=== PATIENT | male | born 1970 | race Hispanic/Latino ===

== ENCOUNTER 2017-11-01 23:41 | Emergency (ER) | payer BC, MEDICARE, OTHER ==
[2017-11-01 23:45] VITALS: BMI 21.7
[2017-11-01 23:47] VITALS: BP 151/83; RESP 18; TEMP 99.5; O2SAT 96
[2017-11-02] MEDS ORDERED: Sodium Chloride 0.9% 1,000 ML IV STA (00:25)
[2017-11-02 00:55] LABS: BASO % 0.7 % (0.0-2.0); EOS # 0.1 K/uL (0.0-0.7); EOS % 1.5 % (0.0-4.0); LYMPH # 0.7 K/uL (1.0-4.3); MEAN CELL VOLUME 89.2 fl (80.0-94.0); MEAN CORPUSCULAR HEMOGLOBIN 29.6 pg (27.0-31.0); MEAN CORPUSCULAR HGB CONC 33.2 g/dL (33.0-37.0); MEAN PLATELET VOLUME 8.2 fl (7.2-11.7); MONO # 0.1 K/uL (0.0-0.8); NEUT # 4.9 K/uL (1.8-7.0); NEUT % 83.8 % (50.0-75.0); NRBC % 0.1 % (0.0-0.0); RBC 4.37 Mil/uL (4.40-5.90); RED CELL DISTRIBUTION WIDTH 13.5 % (11.5-14.5); WHITE BLOOD COUNT 5.9 K/uL (4.8-10.8)
[2017-11-02 01:05] LABS: BLOOD UREA NITROGEN 12 mg/dl (9-20); GFR AFRICAN-AMERICAN > 60; GFR NON-AFRICAN AMERICAN > 60
[2017-11-02] MEDS ORDERED: Iohexol 300 100 ML IJ ONE (01:22)
[2017-11-02] MEDS ORDERED: Sodium Chloride 0.9% 50 ML IV ONE (01:22)
--- NOTE | 2017-11-02 01:35 | ED PDOC ---
HPI: Abdomen Time Seen by Provider: 11/02/17 00:08 Chief Complaint (Nursing): Abdominal Pain Chief Complaint (Provider): Abdominal Pain History Per: Patient History/Exam Limitations: no limitations Onset/Duration Of Symptoms: Intermittent Episodes Current Symptoms Are (Timing): Still Present Additional Complaint(s): 47 year old male presents to the emergency department complaining of left flank pain radiating to the lower abdomen, occurring intermittently since this afternoon. Associated with difficulty urinating and cloudy urine. He denies any fevers, vomiting, diarrhea, chest pain, or shortness of breath. Patient is HIV positive and has a low CD4 count, for which he is on treatment. PMD: Provider TBMayra Past Medical History Reviewed: Historical Data, Nursing Documentation, Vital Signs Vital Signs: Last Vital Signs Temp 99.5 F 11/01/17 23:45 Pulse 80 11/02/17 04:13 Resp 18 11/01/17 23:45 BP 151/83 H 11/01/17 23:45 Pulse Ox 96 11/02/17 04:13 - Medical History PMH: HIV, Migraine Denies: Diabetes, Hepatitis, HTN, Chronic Kidney Disease, Seizures, Sexually Transmitted Disease - Surgical History Surgical History: Appendectomy - Family History Family History: States: Unknown Family Hx - Social History Current smoker - smoking cessation education provided: Yes Alcohol: Social Drugs: Opiates (Heroin) - Immunization History Hx Tetanus Toxoid Vaccination: No Hx Influenza Vaccination: No Hx Pneumococcal Vaccination: Yes - Home Medications Home Medications: Ambulatory Orders Medication Instructions Recorded Levofloxacin [Levaquin] 500 mg PO DAILY #7 tablet 11/02/17 - Allergies Allergies/Adverse Reactions: Allergies Allergy/AdvReac Type Severity Reaction Status Date / Time No Known Allergies Allergy Verified 11/01/17 23:44 Review of Systems ROS Statement: Except As Marked, All Systems Reviewed And Found Negative Constitutional: Negative for: Fever Cardiovascular: Negative for: Chest Pain Respiratory: Negative for: Shortness of Breath Gastrointestinal: Positive for: Abdominal Pain (and left flank pain). Negative for: Vomiting, Diarrhea Physical Exam - Reviewed Nursing Documentation Reviewed: Yes Vital Signs Reviewed: Yes - Physical Exam Appears: Positive for: Non-toxic, No Acute Distress Head Exam: Positive for: ATRAUMATIC, NORMAL INSPECTION, NORMOCEPHALIC Skin: Positive for: Normal Color, Warm, Dry Eye Exam: Positive for: EOMI, Normal appearance, PERRL Neck: Positive for: Normal, Supple Cardiovascular/Chest: Positive for: Regular Rate, Rhythm. Negative for: Murmur Respiratory: Positive for: Normal Breath Sounds. Negative for: Accessory Muscle Use, Respiratory Distress Gastrointestinal/Abdominal: Positive for: Soft, Tenderness (to lower abdomen throughout) Back: Positive for: Normal Inspection. Negative for: L CVA Tenderness, R CVA Tenderness Extremity: Positive for: Normal ROM. Negative for: Deformity Neurologic/Psych: Positive for: Alert, Oriented - Laboratory Results Result Diagrams: 11/02/17 00:45 11/02/17 00:45 - ECG ECG: Positive for: Interpreted By Me, Viewed By Me ECG Rhythm: Positive for: Normal QRS, Normal ST Segment, Sinus Rhythm. Negative for: ST/T Changes Rate: 80 O2 Sat by Pulse Oximetry: 96 (RA) Pulse Ox Interpretation: Normal - Radiology X-Ray: Interpreted by Me, Viewed By Me X-Ray Interpretation: No Acute Disease Medical Decision Making Medical Decision Making: Initial Impression: Flank pain, Abdominal pain, with dysuria Differential includes but is not limited to: kidney stones, UTI Time: 00:24 Initial Plan: --Urine dipstick --BMP --CBC w/ differential --NS IV 1000 ml at 1000 mls/hr --Toradol 30 mg IVP --Zofran 4 mg IV --Blood culture --Urine culture --CT Abdomen/Pelvis IV contrast only --Reevaluation CT Abdomen & Pelvis: FINDINGS: Lower thorax: Mild patchy nodular airspace disease right lower lobe. Minimal patchy nodular airspace disease right middle lobe. ABDOMEN: Liver: Mild periportal edema. Gallbladder and bile ducts: No calcified gallstones. Mild dilatation of common bile duct, to 1.0 cm. Pancreas: No ductal dilation. No mass. Spleen: No splenomegaly. Adrenals: No mass. Kidneys and ureters: No mass. No hydronephrosis. Stomach and bowel: No definite mural thickening. Few mildly distended loops of small bowel, likely ileus. Appendix: Appendectomy. PELVIS: Bladder: Unremarkable. Reproductive: Unremarkable as visualized. ABDOMEN and PELVIS: Intraperitoneal space: No significant fluid collection. No free air. Bones/joints: No acute fracture. Soft tissues: Unremarkable. Vasculature: Mild atherosclerotic disease. No aneurysm. Lymph nodes: No pathologically enlarged lymph nodes. IMPRESSION: 1. Probable right basilar pneumonia. Followup to resolution to exclude underlying pathology. 2. Mild periportal edema, nonspecific. 3. Mild biliary ductal dilatation. Suggest ultrasound. 4. Incidental/non-acute findings are described above. Thank you for allowing us to participate in the care of your patient. Dictated and Authenticated by: Pablo Pool MD 11/02/2017 2:43 AM Eastern Time ([place] & T[place]) Time: 3:12 --Chest X-ray --LFTs Scribe Attestation: Documented by Sweta Duarte, acting as a scribe for Sung Tanner MD Provider Scribe Attestation: All medical record entries made by the Scribe were at my direction and personally dictated by me. I have reviewed the chart and agree that the record accurately reflects my personal performance of the history, physical exam, medical decision making, and the department course for this patient. I have also personally directed, reviewed, and agree with the discharge instructions and disposition. Disposition - Clinical Impression Clinical Impression: Abdominal pain, Pneumonia, Dysuria - Patient ED Disposition Is Patient to be Admitted: No Doctor Will See Patient In The: Office Counseled Patient/Family Regarding: Studies Performed, Diagnosis, Need For Followup - Disposition Referrals: Dexter Guzman Jr., MD [Staff Provider] - Radu Zuniga MD [Staff Provider] - Disposition: Routine/Home Disposition Time: 04:09 Condition: GOOD Additional Instructions: Take your medications as instructed. Follow up with your PCP in 2-3 days. Prescriptions: Levofloxacin [Levaquin] 500 mg PO DAILY #7 tablet Instructions: Community Acquired Pneumonia (ED), Dysuria (ED), Abdominal Pain ( ED) Curb-65 Severity Score - CURB-65 Severity Score Confusion: No Bun >19mg/dl (>7mmol/L): No Respiratory Rate greater than/equal to 30: No Systolic BP <90 or Diastolic BP less than/equal 60mmHg: No Age >64: No Curb-65 Score: 0 Percentage 30-day mortality: 0.6%
[2017-11-02] MEDS ORDERED: Morphine 4 MG/ML VIAL IVP ONE (02:20)
--- NOTE | 2017-11-02 02:43 | CT ---
EXAM: CT Abdomen and Pelvis With Intravenous Contrast CLINICAL HISTORY: 47 years old, male; Pain; Abdominal pain; Localized; Left; Prior surgery; Surgery date: 6+ months; Surgery type: Appendectomy; Additional info: Let flank and lower abdominal pain with dysuria TECHNIQUE: Axial computed tomography images of the abdomen and pelvis with intravenous contrast. All CT scans at this facility use one or more dose reduction techniques, viz.: automated exposure control; ma/kV adjustment per patient size (including targeted exams where dose is matched to indication; i.e. head); or iterative reconstruction technique. Coronal and sagittal reformatted images were created and reviewed. CONTRAST: 95 mL of [id number] administered intravenously. COMPARISON: No relevant prior studies available. FINDINGS: Lower thorax: Mild patchy nodular airspace disease right lower lobe. Minimal patchy nodular airspace disease right middle lobe. ABDOMEN: Liver: Mild periportal edema. Gallbladder and bile ducts: No calcified gallstones. Mild dilatation of common bile duct, to 1.0 cm. Pancreas: No ductal dilation. No mass. Spleen: No splenomegaly. Adrenals: No mass. Kidneys and ureters: No mass. No hydronephrosis. Stomach and bowel: No definite mural thickening. Few mildly distended loops of small bowel, likely ileus. Appendix: Appendectomy. PELVIS: Bladder: Unremarkable. Reproductive: Unremarkable as visualized. ABDOMEN and PELVIS: Intraperitoneal space: No significant fluid collection. No free air. Bones/joints: No acute fracture. Soft tissues: Unremarkable. Vasculature: Mild atherosclerotic disease. No aneurysm. Lymph nodes: No pathologically enlarged lymph nodes. IMPRESSION: 1. Probable right basilar pneumonia. Followup to resolution to exclude underlying pathology. 2. Mild periportal edema, nonspecific. 3. Mild biliary ductal dilatation. Suggest ultrasound. 4. Incidental/non-acute findings are described above.
[2017-11-02 03:20] VITALS: PULSE 80
[2017-11-02] MEDS ORDERED: Morphine 4 MG/ML VIAL ONE (03:30)
[2017-11-02 03:32] LABS: ALB/GLOB RATIO 0.9 (1.0-2.1); ALBUMIN 3.7 g/dL (3.5-5.0); BILIRUBIN,DIRECT 0.3 mg/ml (0.0-0.4)
--- NOTE | 2017-11-02 11:48 | RAD ---
HISTORY: abnormal CT findings COMPARISON: Correlations made to CT scan of the abdomen pelvis performed approximately 2 hours prior. TECHNIQUE: Chest PA and lateral FINDINGS: LUNGS: Biapical bullous change. No active pulmonary disease. PLEURA: No significant pleural effusion identified. No pneumothorax apparent. CARDIOVASCULAR: Normal. OSSEOUS STRUCTURES: No significant abnormalities. VISUALIZED UPPER ABDOMEN: Normal. OTHER FINDINGS: None. IMPRESSION: No active disease.
== END 2017-11-02 04:53 | disposition home or self-care (01) ==
LOC: H.ER 23:41
DX: R10.9 Unspecified abdominal pain (principal); J18.9 Pneumonia, unspecified organism; R30.0 Dysuria; F17.200 Nicotine dependence, unspecified, uncomplicated
CPT/HCPCS: 71046; 74177; 80048; 80076; 85025; 87040; 87086; 96361; 96374; 96375; 99283; J1885; J2270; J2405; J7040; Q9967

== ENCOUNTER 2018-02-01 22:25 | Emergency (ER) | payer MEDICARE ==
[2018-02-01 22:26] VITALS: BMI 21.7
[2018-02-01 22:43] VITALS: BP 116/65; PULSE 98; RESP 18; TEMP 98; O2SAT 100
--- NOTE | 2018-02-01 23:15 | ED PDOC ---
HPI: General Adult Time Seen by Provider: 02/01/18 22:43 Chief Complaint (Nursing): Abnormal Skin Integrity History Per: Patient Additional Complaint(s): Pt. states for the past "36 hours" he's had b/l lower leg swelling (R>L). Reports swelling to L leg has resolved but R leg swelling persists. States the last week he was admitted into [facility] for "pneumonia" where he stayed for 4 days. He was prescribed Levaquin, zithromax, and Bactrim. Further states he was informed that his CD4 was <20 and he is uncertain of his viral load. Pt. is HIV + and does go to the [facility]. States he is still having a cough but has been improving. Also reports still having a fever but is controlled with Tylenol and Motrin. Last dose of Tylenol was taken at 1930. Denies hemoptysis, chest pain, SOB, hx of DVT or PE, PND, [place], trauma, numbness , tingling, hx of CHF. Past Medical History Reviewed: Historical Data, Nursing Documentation, Vital Signs Vital Signs: Last Vital Signs Temp 98.0 F 02/01/18 22:40 Pulse 98 H 02/01/18 22:40 Resp 18 02/01/18 22:40 BP 116/65 02/01/18 22:40 Pulse Ox 100 02/02/18 00:08 - Medical History PMH: COPD, HIV, Migraine Denies: Diabetes, Hepatitis, HTN, Chronic Kidney Disease, Seizures, Sexually Transmitted Disease - Surgical History Surgical History: Appendectomy - Family History Family History: States: No Known Family Hx - Immunization History Hx Tetanus Toxoid Vaccination: No Hx Influenza Vaccination: No Hx Pneumococcal Vaccination: Yes - Home Medications Home Medications: Ambulatory Orders Medication Instructions Recorded Levofloxacin [Levaquin] 500 mg PO DAILY #7 tablet 11/02/17 - Allergies Allergies/Adverse Reactions: Allergies Allergy/AdvReac Type Severity Reaction Status Date / Time No Known Allergies Allergy Verified 11/01/17 23:44 Review of Systems ROS Statement: Except As Marked, All Systems Reviewed And Found Negative Constitutional: Positive for: Fever Respiratory: Positive for: Cough Musculoskeletal: Positive for: Leg Pain Physical Exam - Physical Exam Appears: Positive for: Well, Non-toxic, No Acute Distress Skin: Positive for: Normal Color, Warm. Negative for: Rash Eye Exam: Positive for: Normal appearance ENT: Positive for: Normal ENT Inspection Cardiovascular/Chest: Positive for: Regular Rate, Rhythm. Negative for: Tachycardia Respiratory: Positive for: Normal Breath Sounds. Negative for: Crackles, Rales , Wheezing, Respiratory Distress Pulses-Dorsalis Pedis (L): 2+ Pulses-Dorsalis Pedis (R): 2+ Gastrointestinal/Abdominal: Positive for: Soft. Negative for: Tenderness Back: Positive for: Normal Inspection. Negative for: L CVA Tenderness, R CVA Tenderness Extremity: Positive for: Capillary Refill (< 2 second on b/l feet), Swelling (R lower leg swelling with tenderness). Negative for: Pedal Edema (b/l), Calf Tenderness (b/l) Neurologic/Psych: Positive for: Alert, Oriented - ECG O2 Sat by Pulse Oximetry: 100 - Radiology X-Ray: Interpreted by Me (CXR) X-Ray Interpretation: No Acute Disease - Progress ED Course And Treament: CXR, duplex b/l lower extremities vein ordered. Case d/w Dr. Mart who agrees with care and plan. Disposition - Clinical Impression Clinical Impression: Leg pain - Patient ED Disposition Is Patient to be Admitted: Transfer of Care (Signed out to Bianca TURNER pending US report.) - Disposition Disposition Time: 00:03 Condition: STABLE Forms: [employer] (E[place]ian)
--- NOTE | 2018-02-02 00:09 | ED PDOC ---
- ECG O2 Sat by Pulse Oximetry: 100 Pulse Ox Interpretation: Normal - Other Rad Dupplex b/l lower extremities X-Ray: Read By Radiologist X-Ray Interpretation: no acute finding Medical Decision Making Medical Decision Making: Case was signed out to medical writer from KENYON Arciniega pending US of lower extremities Doppler is negative for acute findings. Patient was instructed to continue with current medications and follow up with primary doctor. Disposition - Clinical Impression Clinical Impression: Leg pain - POA Present On Arrival: None - Disposition Referrals: [facility] [Outside] Disposition: Routine/Home Disposition Time: 01:14 Condition: STABLE Additional Instructions: Continue with current meds. Follow up with primary care doctor. Instructions: Muscle and Bone Pain (DC) Forms: [employer] ([place])
--- NOTE | 2018-02-02 01:10 | US ---
EXAM: US Duplex Bilateral Lower Extremity Veins EXAM DATE/TIME: 02/01/2018 10:55 PM CLINICAL HISTORY: 47 years old, male; Pain; Leg, lower; Bilateral; Additional info: Leg swelling TECHNIQUE: Real-time duplex ultrasound scan of the bilateral lower extremity veins integrating B-mode two-dimensional vascular structure, Doppler spectral analysis, color flow Doppler imaging and compression. COMPARISON: No relevant prior studies available. FINDINGS: No evidence of DVT in the common femoral, superficial femoral, popliteal, peroneal or posterior tibial veins bilaterally based on compressibility and flow images. IMPRESSION: No acute findings.
--- NOTE | 2018-02-02 08:56 | RAD ---
HISTORY: cough COMPARISON: Chest radiograph dated 11/02/2017. TECHNIQUE: Chest PA and lateral FINDINGS: LUNGS: Biapical scarring. No active pulmonary disease. PLEURA: No significant pleural effusion identified. No pneumothorax apparent. CARDIOVASCULAR: Atherosclerotic aortic calcifications. Cardiomediastinal silhouette within normal limits. OSSEOUS STRUCTURES: Unchanged. VISUALIZED UPPER ABDOMEN: Normal. OTHER FINDINGS: None. IMPRESSION: No active disease.
== END 2018-02-02 01:20 | disposition home or self-care (01) ==
LOC: H.ER 22:25
DX: M79.605 Pain in left leg (principal); J44.9 Chronic obstructive pulmonary disease, unspecified